=== PATIENT | female | born 1970 | race Two or more races ===

== ENCOUNTER 2023-08-30 19:18 | Emergency (ER) | payer SELFPAY ==
[~2023-08-30] VITALS: Ht 149.9 cm; Wt 75.3 kg
[2023-08-30] MEDS ORDERED: TETRAcaine 5 ML BOTTLE ONE (20:56)
[2023-08-30] MEDS: FLUORESCEIN SODIUM OPHTH 1 EA STRIP OP ONE (20:57)
[2023-08-30] MEDS: TETRACAINE HCL 0.5% OPHTALMIC 15 ML BOTTLE OP ONE (20:57)
[2023-08-30] MEDS ORDERED: POLY10DR OP (21:16)
[2023-08-30 21:27] VITALS: BP 130/88; TEMP 98.6; O2SAT 98
== END 2023-08-30 21:27 | disposition home or self-care (01) ==
LOC: ER 19:27
DX: H10.89 Other conjunctivitis (principal); Z60.2 Problems related to living alone